=== PATIENT | male | born 1945 | race Asian ===

== ENCOUNTER 2016-10-14 11:42 | Outpatient (CLI) | payer OTHER, BC | END 2016-10-14 19:06 | disposition home or self-care (01) | LOC: LAB 11:42 | PROVIDERS: Nurse Practitioner Family | DX: I10 Essential (primary) hypertension (principal); E78.00 Pure hypercholesterolemia, unspecified; Z79.899 Other long term (current) drug therapy; R39.198 Other difficulties with micturition; E55.9 Vitamin D deficiency, unspecified | CPT/HCPCS: 80053; 80061; 82306; 82607; 83036; 84154; 84439; 84443; 85027; 85651 ==

== ENCOUNTER 2017-04-15 08:06 | Outpatient (CLI) | payer OTHER, BC ==
[2017-04-15 14:28] LABS: PLATELET COUNT 180 K/uL (142-355)
[2017-04-15 15:16] LABS: POTASSIUM 4.2 mmol/L (3.6-5.2)
== END 2017-04-15 19:29 | disposition home or self-care (01) ==
LOC: US 08:06 → LAB 08:06 → US 09:00
PROVIDERS: Nurse Practitioner Family
DX: Z79.899 Other long term (current) drug therapy (principal); Z51.81 Encounter for therapeutic drug level monitoring; E78.00 Pure hypercholesterolemia, unspecified; I10 Essential (primary) hypertension; R39.198 Other difficulties with micturition; G47.09 Other insomnia; K76.89 Other specified diseases of liver; R07.89 Other chest pain
CPT/HCPCS: 80053; 80061; 83036; 84436; 84443; 85027

== ENCOUNTER 2017-05-07 07:47 | Outpatient (CLI) | payer OTHER, BC | END 2017-05-07 18:57 | disposition home or self-care (01) | LOC: CT 07:47 | DX: K76.89 Other specified diseases of liver (principal) ==

== ENCOUNTER 2017-07-25 22:31 | Emergency (ER) | payer OTHER, BC ==
[~2017-07-25] VITALS: Ht 172.7 cm; Wt 88.5 kg
[2017-07-25 23:41] LABS: PLATELET COUNT 165 K/uL (142-355)
[2017-07-25 23:42] LABS: POTASSIUM 3.5 mmol/L (3.6-5.2)
[2017-07-26 03:36] VITALS: BP 134/82; TEMP 97.9
== END 2017-07-26 03:37 | disposition home or self-care (01) ==
LOC: ED 22:31
DX: R10.84 Generalized abdominal pain (principal); K57.30 Diverticulosis of large intestine without perforation or abscess without bleeding; R16.0 Hepatomegaly, not elsewhere classified
CPT/HCPCS: 36415; 80053; 82150; 83690; 85027; 96374; 96375; 99284; J1170; J2405; J2550

== ENCOUNTER 2017-08-17 13:46 | Outpatient (CLI) | payer OTHER, BC ==
[2017-08-17 14:24] LABS: PLATELET COUNT 198 K/uL (142-355)
[2017-08-17 16:18] LABS: SODIUM 140.7 mmol/L (136-145)
== END 2017-08-17 19:50 | disposition home or self-care (01) ==
LOC: LAB 13:46
PROVIDERS: Nurse Practitioner Family
DX: Z79.899 Other long term (current) drug therapy (principal); Z51.81 Encounter for therapeutic drug level monitoring; R39.198 Other difficulties with micturition; E55.9 Vitamin D deficiency, unspecified; I10 Essential (primary) hypertension; E78.00 Pure hypercholesterolemia, unspecified
CPT/HCPCS: 80053; 80061; 82306; 82607; 83036; 84154; 84436; 84443; 85027

== ENCOUNTER 2019-07-19 11:38 | Emergency (ER) | payer OTHER ==
[~2019-07-19] VITALS: Ht 175.3 cm; Wt 88.5 kg
[2019-07-19 11:48] VITALS: BP 162/75; TEMP 99
== END 2019-07-19 13:25 | disposition home or self-care (01) ==
LOC: ED 11:38
DX: S20.211A Contusion of right front wall of thorax, initial encounter (principal); V89.2XXA Person injured in unspecified motor-vehicle accident, traffic, initial encounter
CPT/HCPCS: 96372; 99283; J1885

== ENCOUNTER 2019-08-15 12:23 | Emergency (ER) | payer OTHER, BC ==
[~2019-08-15] VITALS: Ht 175.3 cm; Wt 88.5 kg
[2019-08-15 12:38] VITALS: TEMP 97.8
[2019-08-15 14:30] VITALS: BP 155/71
== END 2019-08-15 14:30 | disposition home or self-care (01) ==
LOC: ED 12:23
DX: S39.012A Strain of muscle, fascia and tendon of lower back, initial encounter (principal); S30.0XXA Contusion of lower back and pelvis, initial encounter; W18.39XA Other fall on same level, initial encounter; Y92.240 Courthouse as the place of occurrence of the external cause
CPT/HCPCS: 99283

== ENCOUNTER 2020-08-26 08:50 | Emergency (ER) | payer OTHER, BC ==
[~2020-08-26] VITALS: Ht 175.3 cm; Wt 88.5 kg
[2020-08-26 09:04] VITALS: TEMP 97.6
[2020-08-26 09:51] VITALS: BP 162/89
== END 2020-08-26 09:51 | disposition home or self-care (01) ==
LOC: ED 08:50
DX: S46.092A Other injury of muscle(s) and tendon(s) of the rotator cuff of left shoulder, initial encounter (principal)
CPT/HCPCS: 99282

== ENCOUNTER 2020-10-28 10:39 | Outpatient (CLI) | payer OTHER, BC | END 2020-10-28 19:35 | disposition home or self-care (01) | LOC: RAD 10:39 | PROVIDERS: ATTEND Nurse Practitioner Family | DX: M25.551 Pain in right hip (principal); M79.604 Pain in right leg ==

== ENCOUNTER 2021-06-12 11:05 | Outpatient (CLI) | payer OTHER, BC | END 2021-06-12 19:26 | disposition home or self-care (01) | LOC: INF 11:05 | PROVIDERS: ATTEND Internal Medicine Endocrinology, Diabetes & Metabolism | DX: Z23 Encounter for immunization (principal) ==

== ENCOUNTER 2021-10-22 14:52 | Outpatient (CLI) | payer OTHER, BC ==
[2021-10-22 15:19] LABS: PLATELET COUNT 184 K/uL (142-355)
[2021-10-22 15:24] LABS: POTASSIUM 4.1 mmol/L (3.6-5.2)
== END 2021-10-22 19:22 | disposition home or self-care (01) ==
LOC: LABW 14:52
PROVIDERS: ATTEND Internal Medicine Endocrinology, Diabetes & Metabolism
DX: R10.31 Right lower quadrant pain (principal)
CPT/HCPCS: 36415; 80053; 81000; 85027

== ENCOUNTER 2021-10-24 10:20 | Outpatient (CLI) | payer OTHER, BC | END 2021-10-24 18:55 | disposition home or self-care (01) | LOC: CT 10:20 | PROVIDERS: ATTEND Internal Medicine Endocrinology, Diabetes & Metabolism | DX: R10.31 Right lower quadrant pain (principal) ==